=== PATIENT | male | born 1940 | race African-American/Black ===

== ENCOUNTER 2017-11-12 12:44 | Emergency (ER) | payer MEDICARE, MEDICAID ==
[~2017-11-12] VITALS: Ht 172.7 cm; Wt 102.0 kg
[~2017-11-12 12:44] MED LIST: VALS1TAB72 PO
[2017-11-12 15:37] LABS: HEMATOCRIT. 46.5 % (42.0-52.0); HEMOGLOBIN. 15.5 g/dL (14.0-18.0); MEAN CORPUSCULAR HEMOGLOBIN 27.8 pg (28.0-32.0); MEAN CORPUSCULAR VOLUME 83.6 fL (80.0-94.0); MEAN PLATELET VOLUME 9.9 fl (7.4-10.4); PLATELET 191 x1000/uL (130-400); RED BLOOD CELL COUNT 5.56 mill/uL (4.7-6.1); RED CELL DISTRIBUTION WIDTH 14.4 % (11.6-14.6)
[2017-11-12 15:39] LABS: CHLORIDE 102 mEq/L (98-107)
[2017-11-12 16:05] LABS: ATYPICAL LYMPHOCYTES 7; PLATELET ESTIMATE NORMAL
[2017-11-12 16:23] VITALS: BP 154/84
== END 2017-11-12 16:34 | disposition home or self-care (01) ==
LOC: ER 14:34
DX: M79.672 Pain in left foot (principal); R03.0 Elevated blood-pressure reading, without diagnosis of hypertension
CPT/HCPCS: 36415; 73630; 80053; 85025; 99285